=== PATIENT | male | born 1955 | race Caucasian/White ===

== ENCOUNTER 2023-10-17 13:00 | Inpatient (IN) | payer MEDICARE, MEDICAID ==
[2023-10-18 12:41] VITALS: BMI 34.0
[2023-10-19] MEDS ORDERED: Bupivacaine PF 0.5% 30 ML VIAL ONE (09:15)
[2023-10-19] MEDS ORDERED: EPINEPHrine 1 MG/ML VIAL ONE (09:15)
[2023-10-19] MEDS ORDERED: Heparin 5,000 UNITS/ML VIAL ONE (09:15)
[2023-10-19] MEDS ORDERED: Lidocaine 1% MPF 2 ML VIAL ONE (09:46)
[2023-10-19] MEDS ORDERED: CEFAZOLIN 2 GM VIAL ONE (09:57)
[2023-10-19] MEDS ORDERED: Sodium Chloride 0.9% 100 ML ONE (09:57)
[2023-10-19 10:07] LABS: #Basophils Less than 0.03 10x3/uL (0.0-0.2); %Basophils 0.2 % (0.0-1.0); %Eosinophils 2.9 % (0.0-10.0); %Lymphocytes 34.6 % (21.0-51.0); %Monocytes 10.7 % (0.0-10.0); Hematocrit 34.2 % (42.0-52.0); Hemoglobin 11.9 g/dL (14.0-18.0); Mean Corpuscular HGB CONC 34.8 g/dL (32.0-36.0); Mean Corpuscular Hemoglobin 30.3 pg (27.0-31.0); Mean Platelet Volume 9.7 fL (7.4-10.4); Platelet Count 246 10x3/uL (130-400); RBC Distribution Width 14.2 % (11.5-14.5); Red Blood Cell (RBC) Count 3.93 mill/uL (4.70-6.10)
[2023-10-19] MEDS ORDERED: Glycopyrrolate 0.2 MG/ML 5 ML SYRINGE ONE (10:12)
[2023-10-19] MEDS ORDERED: ePHEDrine Sulfate 50 MG/10 ML VIAL ONE (10:12)
[2023-10-19] MEDS ORDERED: PHENYLEPHRINE-NS 100 MCG/ML 10 ML SYRINGE ONE (10:12)
[2023-10-19] MEDS ORDERED: PROPOFOL 200 MG/20 ML VIAL ONE (10:12)
[2023-10-19] MEDS ORDERED: Rocuronium Bromide 10 MG/ML (10ML VIAL) ONE (10:12)
[2023-10-19 11:06] LABS: Anion Gap 16 mmol/L (10-20); BUN (Urea Nitrogen) 23 mg/dL (8.4-25.7); Calc. Creatinine Clearance 61 mL/min (70-130); Calcium 9.4 mg/dL (7.8-10.44); Carbon Dioxide 27 mmol/L (23-31); Chloride 104 mmol/L (98-107); Estimated GFR 45; Glucose 175 mg/dL (80-115); Potassium 3.5 mmol/L (3.5-5.1); Sodium 143 mmol/L (136-145)
[2023-10-19] MEDS ORDERED: Acetaminophen 325 MG TAB PO PRN (11:34)
[2023-10-19] MEDS ORDERED: Ipratropium/Albuterol 3 ML NEB NEB PRN (11:34)
[2023-10-19] MEDS ORDERED: Albuterol 200 PUFF (6.7GM INHALER) INH PRN (11:34)
[2023-10-19] MEDS ORDERED: Nitroglycerin 50 MG/250 ML BOT 250 ML IVPB PRN (11:34)
[2023-10-19] MEDS ORDERED: NOREPINEPHRINE 8 MG/250 ML-D5W 250 ML IVPB PRN (11:34)
[2023-10-19] MEDS ORDERED: NOREPINEPHRINE 8 MG/250 ML-D5W 250 ML IVPB SCH (12:30)
[2023-10-19] MEDS: Aspirin 81 mg Enteric Coated Tablet PO SCH (14:38)
[2023-10-19] MEDS: Sodium Chloride 0.9% 1,000 ML IV SCH (14:38)
[2023-10-19] MEDS: Ipratropium/Albuterol 3 ML NEB NEB SCH (14:53)
[2023-10-19] MEDS: metFORMIN 500 MG TAB PO SCH (16:25)
[2023-10-19] MEDS: Insulin Regular, Human 100 UNIT/ML 10 ML VIAL SC PRN (16:25)
[2023-10-19] MEDS: fentaNYL 50 mcg/mL 1 mL Vial SLOW IVP PRN (16:29)
[2023-10-19] MEDS: Ondansetron PF 4 MG/2 ML Vial IVP PRN (16:30)
[2023-10-19] MEDS: CEFAZOLIN 2 GM in Sodium Chloride 0.9% 100 ML IVPB SCH (16:59)
[2023-10-19] MEDS: hydrALAZINE 20 MG/ML VIAL SLOW IVP PRN (20:00)
[2023-10-19] MEDS: Fenofibrate Nanocrystallized 145 MG TAB PO SCH (20:35)
[2023-10-19] MEDS: Atorvastatin Calcium 40 MG TAB PO SCH (20:35)
[2023-10-19] MEDS: Gabapentin 400 MG CAP PO SCH (20:35)
[2023-10-19] MEDS: Insulin Glargine 30 UNITS/0.3 ML VIAL SC SCH (20:36)
[2023-10-19] MEDS: Tamsulosin HCl 0.4 MG CAP PO SCH (20:36)
[2023-10-20] MEDS: traMADol HCl 50 MG TAB PO PRN (00:55)
[2023-10-20] MEDS: Clopidogrel Bisulfate 75 MG TAB PO SCH (08:03)
[2023-10-20] MEDS: Pantoprazole DR 40 MG TAB PO SCH (08:03)
[2023-10-20] MEDS ORDERED: Nitroglycerin 0.4 MG TAB (25 Tab Bottle) SL PRN (08:26)
[2023-10-20] MEDS ORDERED: Ipratropium Bromide 2.5 ml Neb NEB PRN (08:26)
[2023-10-20] MEDS: busPIRone HCl 5 MG TAB PO SCH (09:21)
[2023-10-20] MEDS: hydrOXYzine 25 MG TAB PO SCH (09:21)
[2023-10-20] MEDS: tiZANidine HCl 4 MG TAB PO SCH (09:21)
[2023-10-20 09:22] VITALS: BP 130/82
[2023-10-20] MEDS: Bumetanide 1 MG TAB PO SCH (09:22)
[2023-10-20] MEDS: Carvedilol 6.25 MG TAB PO SCH (09:22)
[2023-10-20 09:44] VITALS: TEMP 98.4
[2023-10-20] MEDS ORDERED: Aspirin 81 mg Enteric Coated Tablet PO SCH (21:00)
[2023-10-20] MEDS ORDERED: Montelukast Sodium 10 mg Tablet PO SCH (21:00)
== END 2023-10-20 10:40 | disposition home or self-care (01) | DRG 36 ==
LOC: SURG A 10-19 07:03 → CCU 10-19 14:07
PROVIDERS: ADMIT Thoracic Surgery (Cardiothoracic Vascular Surgery); ATTEND Thoracic Surgery (Cardiothoracic Vascular Surgery)
PROC: 037L3DZ Dilation of Left Internal Carotid Artery with Intraluminal Device, Percutaneous Approach (ICD-10-PCS; principal; 2023-10-19)
DX: I65.22 Occlusion and stenosis of left carotid artery (principal); F17.220 Nicotine dependence, chewing tobacco, uncomplicated; J44.9 Chronic obstructive pulmonary disease, unspecified; I48.91 Unspecified atrial fibrillation; N40.0 Benign prostatic hyperplasia without lower urinary tract symptoms; M19.90 Unspecified osteoarthritis, unspecified site; E11.9 Type 2 diabetes mellitus without complications; K21.9 Gastro-esophageal reflux disease without esophagitis; E78.00 Pure hypercholesterolemia, unspecified; I11.0 Hypertensive heart disease with heart failure; I50.9 Heart failure, unspecified; Z79.899 Other long term (current) drug therapy; Z79.85 Long-term (current) use of injectable non-insulin antidiabetic drugs; Z79.84 Long term (current) use of oral hypoglycemic drugs; Z79.82 Long term (current) use of aspirin; Z79.02 Long term (current) use of antithrombotics/antiplatelets; Z86.73 Personal history of transient ischemic attack (TIA), and cerebral infarction without residual deficits; Z95.5 Presence of coronary angioplasty implant and graft; Z88.8 Allergy status to other drugs, medicaments and biological substances
CPT/HCPCS: 36416; 80048; 85025; 94640; C1725; C1769; C1876; C1884; J0171; J0360; J0665; J1642; J1644; J1815; J2405; J2704; J3010; J3490; J7620

== ENCOUNTER 2024-07-15 23:24 | Inpatient (IN) | payer MEDICARE, MEDICAID ==
[2024-07-16 00:45] LABS: Hematocrit 40.9 % (42.0-52.0); Hemoglobin 13.3 g/dL (14.0-18.0); Mean Corpuscular HGB CONC 32.5 g/dL (32.0-36.0); Mean Corpuscular Hemoglobin 30.8 pg (27.0-31.0); Mean Corpuscular Volume 94.7 fL (78.0-98.0); Mean Platelet Volume 9.1 fL (7.4-10.4); Platelet Count 241 10x3/uL (130-400); RBC Distribution Width 13.8 % (11.5-14.5); Red Blood Cell (RBC) Count 4.32 mill/uL (4.70-6.10)
[2024-07-16 01:00] LABS: Troponin I 0.013 ng/mL (< 0.028)
[2024-07-16 01:01] LABS: ALT (SGPT) 27 U/L (Less than 45); AST (SGOT) 47 U/L (11-34); Albumin 3.2 g/dL (3.1-4.5); Alkaline Phosphatase 85 U/L (40-110); Anion Gap 27 mmol/L (10-20); BUN (Urea Nitrogen) 15 mg/dL (8.4-25.7); Bilirubin, Total 0.6 mg/dL (0.3-1.2); Calc. Creatinine Clearance 0 mL/min (70-130); Carbon Dioxide Less than 8 mmol/L (23-31); Chloride 106 mmol/L (98-107); Estimated GFR 48; Globulin 3.6 g/dL (2.4-3.5); Glucose 299 mg/dL (83-110); Lipase 31 U/L (8-78); Magnesium 1.8 mg/dL (1.6-2.6); Potassium 3.8 mmol/L (3.5-5.1); Protein, Total 6.8 g/dL (5.8-8.1); Sodium 135 mmol/L (136-145)
[2024-07-16 01:07] LABS: Band 1 % (5-11); Burr Cells SLIGHT = 2-5 cells HPF (0-1); Eosinophils 1 % (0-10); Lymphocytes 9 % (21-51); Metamyelocyte 1 % (0-0); Monocytes 9 % (0-10); Myelocyte 3 % (0-0); Neutrophil 76 % (42-75); Ovalocytes SLIGHT = 2-5 cells HPF (0-1); Platelet Adequacy Comment Platelets Normal; Polychromasia SLIGHT = 2-3 cells HPF (0-2); Vacuoles SLIGHT
[2024-07-16 01:08] LABS: Analyzer IN Cardio ER; Calcium, Ionized (arterial) 1.37 mmol/L (1.12-1.30); Hematocrit-ABG 39 % (42.0-52.0); Hemoglobin (Hb) 13.2 g/dL (14.0-18.0); O2 Tension (PaO2), arterial 128.5 mmHg (> 70.0); Potassium - ABG Lab 3.93 mmol/L (3.70-5.30)
[2024-07-16 01:22] LABS: Base Excess -20.3 mEq/L (-2.0 to +3.0); Calcium, Ionized (venous) 1.21 mmol/L (1.16-1.32); Hematocrit-VBG 41 % (42.0-52.0); Potassium (VBG) 3.93 mmol/L (3.70-5.30); Sodium 139 mmol/L (133-146)
[2024-07-16 01:23] LABS: pH (venous) 7.136 (7.32-7.43)
[2024-07-16 01:47] LABS: Bacteria/HPF None Seen HPF (None Seen); Bilirubin Negative (Negative); Blood, Urine Negative (Negative); CAUTI Indications for Culture Dysuria,urgency,freq; Clarity Clear (Clear); Glucose, Urine (Dipstick) Greater than 1000 mg/dL (Negative); Ketone, Urine Greater than 150 mg/dL (Negative); Leukocyte Negative Leu/uL (Negative); Nitrite Negative (Negative); Protein, Urine (Dipstick) 20 mg/dL (Neg-Trace); RBC/HPF None Seen HPF (0-3); Specific Gravity, Urine 1.023 (1.002-1.036); Squamous Epithelial None Seen HPF (0-3); Urine Culture Reflex No No; Urobilinogen Normal mg/dL (Less than 2); WBC/HPF None Seen HPF (0-3)
[2024-07-16] MEDS ORDERED: INSULIN REGULAR IN 0.9 % NACL 100 ML ONE (01:52)
[2024-07-16 03:17] LABS: Free T4 (Free Thyroxine) 0.96 ng/dL (0.70-1.48); Thyroid Stimulating Hormone 0.8388 uIU/mL (0.35-4.94)
[2024-07-16] MEDS ORDERED: Albuterol 200 PUFF (6.7GM INHALER) INH PRN (03:37)
[2024-07-16] MEDS ORDERED: Glucagon 1 MG/ML KIT IM PRN ×2 (03:39→14:22)
[2024-07-16] MEDS ORDERED: Dextrose 5% in Water 1,000 ML IV PRN (03:39)
[2024-07-16] MEDS ORDERED: Dextrose 50% Abboject 50 ML SYRINGE SLOW IVP PRN (03:39)
[2024-07-16] MEDS ORDERED: Ondansetron PF 4 MG/2 ML Vial IVP PRN (03:42)
[2024-07-16] MEDS ORDERED: Ondansetron ODT 4 MG TAB PO PRN (03:42)
[2024-07-16] MEDS ORDERED: Acetaminophen 650 MG Suppository PR PRN (03:42)
[2024-07-16] MEDS ORDERED: Pantoprazole 40 MG VIAL ONE (04:17)
[2024-07-16] MEDS ORDERED: Ondansetron PF 4 MG/2 ML Vial ONE (04:17)
[2024-07-16 04:34] LABS: Hemoglobin A1c 10.2 % (4.0-6.0)
[2024-07-16 04:42] LABS: INR-International Normal Ratio 1.1; Prothrombin Time 14.4 sec (12.0-14.7)
[2024-07-16 04:43] LABS: PTT 27.9 sec (22.9-36.1)
[2024-07-16 05:06] LABS: #Basophils 0.04 10x3/uL (0.0-0.2); %Basophils 0.4 % (0.0-1.0); %Eosinophils 0.9 % (0.0-10.0); %Lymphocytes 13.7 % (21.0-51.0); %Monocytes 9.8 % (0.0-10.0); %Neutrophils 69.7 % (42.0-75.0); Hematocrit 40.4 % (42.0-52.0); Hemoglobin 13.6 g/dL (14.0-18.0); Mean Corpuscular HGB CONC 33.7 g/dL (32.0-36.0); Mean Corpuscular Hemoglobin 31.3 pg (27.0-31.0); Mean Corpuscular Volume 93.1 fL (78.0-98.0); Mean Platelet Volume 9.4 fL (7.4-10.4); Platelet Count 231 10x3/uL (130-400); RBC Distribution Width 13.9 % (11.5-14.5); Red Blood Cell (RBC) Count 4.34 mill/uL (4.70-6.10)
[2024-07-16] MEDS: Carvedilol 6.25 MG TAB PO SCH (08:40)
[2024-07-16] MEDS: Famotidine 20 MG TAB PO SCH (08:40)
[2024-07-16] MEDS: metFORMIN 500 MG TAB PO SCH (08:40)
[2024-07-16] MEDS: Famotidine/PF 20 mg/2ml Vial SLOW IVP SCH (09:44)
[2024-07-16] MEDS: Bumetanide 1 MG TAB PO SCH (09:44)
[2024-07-16] MEDS: INSULIN REGULAR IN 0.9 % NACL 100 ML IVPB SCH (10:49)
[2024-07-16 10:59] LABS: #Basophils Less than 0.03 10x3/uL (0.0-0.2); #Eosinophils Less than 0.03 10x3/uL (0.0-0.7); %Basophils 0.2 % (0.0-1.0); %Eosinophils 0.1 % (0.0-10.0); %Lymphocytes 14.9 % (21.0-51.0); %Monocytes 13.8 % (0.0-10.0); %Neutrophils 68.3 % (42.0-75.0); Hematocrit 36.7 % (42.0-52.0); Hemoglobin 12.5 g/dL (14.0-18.0); Mean Corpuscular HGB CONC 34.1 g/dL (32.0-36.0); Mean Corpuscular Hemoglobin 30.9 pg (27.0-31.0); Mean Corpuscular Volume 90.8 fL (78.0-98.0); Platelet Count 205 10x3/uL (130-400); RBC Distribution Width 13.7 % (11.5-14.5); Red Blood Cell (RBC) Count 4.04 mill/uL (4.70-6.10)
[2024-07-16 11:18] LABS: ALT (SGPT) 24 U/L (Less than 45); AST (SGOT) 41 U/L (11-34); Albumin 2.9 g/dL (3.1-4.5); Alkaline Phosphatase 74 U/L (40-110); Anion Gap 14 mmol/L (10-20); BUN (Urea Nitrogen) 11 mg/dL (8.4-25.7); Bilirubin, Total 0.5 mg/dL (0.3-1.2); Calc. Creatinine Clearance 59 mL/min (70-130); Calcium 8.8 mg/dL (7.8-10.44); Carbon Dioxide 15 mmol/L (23-31); Chloride 108 mmol/L (98-107); Estimated GFR 57; Globulin 3.4 g/dL (2.4-3.5); Glucose 177 mg/dL (83-110); Lipase 21 U/L (8-78); Potassium 3.4 mmol/L (3.5-5.1); Protein, Total 6.3 g/dL (5.8-8.1); Sodium 134 mmol/L (136-145)
[2024-07-16] MEDS: Potassium Chloride 40 MEQ in Dextrose 5%-Lactated Ringers 1,000 ML IV SCH (11:25)
[2024-07-16] MEDS ORDERED: Electrolyte Replacement Protocol 1 EACH FS SCH (11:30)
[2024-07-16] MEDS ORDERED: Electrolyte Replacement Protocol FS PRN (12:30)
[2024-07-16] MEDS: Insulin Glargine 30 UNITS/0.3 ML VIAL SC SCH ×2 (12:51→22:01)
[2024-07-16] MEDS: Magnesium 2 GM/50 ML(in water) 2 GM in Premix 1 BAG IVPB SCH (13:59)
[2024-07-16] MEDS: Potassium Chloride 20 MEQ in Premix 1 BAG IVPB SCH (14:48)
[2024-07-16] MEDS: Acetaminophen 325 MG TAB PO PRN (17:22)
[2024-07-16] MEDS: FLU (Fluad Triv) TS24-25 (65UP)/MF59C/PF 45 MCG/0.5 ML Syringe IM ONE (19:06)
[2024-07-16 21:34] LABS: Potassium 3.6 mmol/L (3.5-5.1)
[2024-07-16] MEDS: Montelukast Sodium 10 mg Tablet PO SCH (21:59)
[2024-07-16] MEDS: Tamsulosin HCl 0.4 MG CAP PO SCH (21:59)
[2024-07-16] MEDS: Atorvastatin Calcium 40 MG TAB PO SCH (21:59)
[2024-07-16] MEDS: Pantoprazole 40 MG DR.TAB PO SCH (22:00)
[2024-07-16] MEDS: Fenofibrate Nanocrystallized 145 MG TAB PO SCH (22:00)
[2024-07-16] MEDS: Acetaminophen/Codeine 30-300mg Tablet PO PRN (22:39)
[2024-07-17 06:46] LABS: #Basophils Less than 0.03 10x3/uL (0.0-0.2); #Eosinophils Less than 0.03 10x3/uL (0.0-0.7); %Basophils 0.3 % (0.0-1.0); %Eosinophils 0.1 % (0.0-10.0); %Lymphocytes 19.3 % (21.0-51.0); %Monocytes 11.9 % (0.0-10.0); %Neutrophils 67.2 % (42.0-75.0); Hematocrit 34.4 % (42.0-52.0); Hemoglobin 12.1 g/dL (14.0-18.0); Mean Corpuscular HGB CONC 35.2 g/dL (32.0-36.0); Mean Corpuscular Hemoglobin 31.3 pg (27.0-31.0); Mean Corpuscular Volume 89.1 fL (78.0-98.0); Platelet Count 168 10x3/uL (130-400); RBC Distribution Width 13.8 % (11.5-14.5); Red Blood Cell (RBC) Count 3.86 mill/uL (4.70-6.10)
[2024-07-17 07:05] LABS: ALT (SGPT) 21 U/L (Less than 45); AST (SGOT) 37 U/L (11-34); Albumin 2.6 g/dL (3.1-4.5); Alkaline Phosphatase 75 U/L (40-110); Anion Gap 13 mmol/L (10-20); BUN (Urea Nitrogen) 11 mg/dL (8.4-25.7); Bilirubin, Total 0.7 mg/dL (0.3-1.2); Calc. Creatinine Clearance 59 mL/min (70-130); Calcium 8.7 mg/dL (7.8-10.44); Carbon Dioxide 20 mmol/L (23-31); Chloride 106 mmol/L (98-107); Estimated GFR 58; Globulin 3.2 g/dL (2.4-3.5); Glucose 218 mg/dL (83-110); Potassium 3.4 mmol/L (3.5-5.1); Protein, Total 5.8 g/dL (5.8-8.1); Sodium 136 mmol/L (136-145)
[2024-07-17] MEDS ORDERED: ESOMEPRAZOLE MAGNESIUM 40 MG PO SCH (09:00)
[2024-07-17] MEDS: Magnesium 2 GM/50 ML(in water) 2 GM in Premix 1 BAG IVPB SCH (09:14)
[2024-07-17] MEDS: Potassium Chloride 20 MEQ TAB PO SCH (09:14)
[2024-07-17] MEDS: Aspirin 81 mg Enteric Coated Tablet PO SCH (09:15)
[2024-07-17] MEDS: dilTIAZem ER 60 MG CAP PO SCH (09:16)
[2024-07-17] MEDS: Clopidogrel Bisulfate 75 MG TAB PO SCH (09:16)
[2024-07-17] MEDS: Insulin Glargine 30 UNITS/0.3 ML VIAL SC SCH ×2 (09:28→19:47)
[2024-07-17] MEDS: Potassium Chloride 20 MEQ TAB PO ONE (13:16)
[2024-07-17] MEDS: Insulin Lispro 100 UNIT/ML 10 ML VIAL SC PRN (13:19)
[2024-07-18] MEDS: Calcium Carbonate 500 MG ChewTAB PO PRN (02:54)
[2024-07-18 04:45] LABS: #Basophils Less than 0.03 10x3/uL (0.0-0.2); %Basophils 0.5 % (0.0-1.0); %Eosinophils 2.1 % (0.0-10.0); %Lymphocytes 39.3 % (21.0-51.0); %Monocytes 12.4 % (0.0-10.0); %Neutrophils 44.3 % (42.0-75.0); Hemoglobin 11.5 g/dL (14.0-18.0); Mean Corpuscular HGB CONC 34.8 g/dL (32.0-36.0); Mean Corpuscular Hemoglobin 30.7 pg (27.0-31.0); Mean Corpuscular Volume 88.2 fL (78.0-98.0); Mean Platelet Volume 9.1 fL (7.4-10.4); Platelet Count 153 10x3/uL (130-400); RBC Distribution Width 13.8 % (11.5-14.5); Red Blood Cell (RBC) Count 3.74 mill/uL (4.70-6.10)
[2024-07-18 05:07] LABS: Anion Gap 9 mmol/L (10-20); BUN (Urea Nitrogen) 12 mg/dL (8.4-25.7); Calc. Creatinine Clearance 68 mL/min (70-130); Calcium 8.7 mg/dL (7.8-10.44); Carbon Dioxide 24 mmol/L (23-31); Chloride 106 mmol/L (98-107); Estimated GFR 68; Glucose 116 mg/dL (83-110); Potassium 3.4 mmol/L (3.5-5.1); Sodium 136 mmol/L (136-145)
[2024-07-18] MEDS: Magnesium 2 GM/50 ML(in water) 2 GM in Premix 1 BAG IVPB SCH (09:00)
[2024-07-18] MEDS: Potassium Chloride 20 MEQ TAB PO SCH (09:00)
[2024-07-18] MEDS: Gabapentin 300 MG CAP PO SCH (12:39)
[2024-07-18] MEDS: Potassium Chloride 20 MEQ TAB PO ONE (14:58)
[2024-07-18] MEDS: Morphine 2 MG/ML VIAL SLOW IVP SCH (16:41)
[2024-07-18] MEDS: Gabapentin 100 MG CAP PO SCH (19:52)
[2024-07-18] MEDS: Insulin Glargine 30 UNITS/0.3 ML VIAL SC SCH (19:54)
[2024-07-18] MEDS: Melatonin 3 MG TAB PO SCH (19:56)
[2024-07-19] MEDS: Insulin Glargine 30 UNITS/0.3 ML VIAL SC SCH (08:37)
[2024-07-19] MEDS: Morphine 2 MG/ML VIAL SLOW IVP PRN (13:13)
[2024-07-19] MEDS: Gabapentin 300 MG CAP PO SCH (13:54)
[2024-07-20 04:44] LABS: #Basophils Less than 0.03 10x3/uL (0.0-0.2); %Basophils 0.2 % (0.0-1.0); %Eosinophils 4.1 % (0.0-10.0); %Monocytes 12.5 % (0.0-10.0); Hematocrit 32.5 % (42.0-52.0); Hemoglobin 11.6 g/dL (14.0-18.0); Mean Corpuscular HGB CONC 35.7 g/dL (32.0-36.0); Mean Corpuscular Hemoglobin 31.2 pg (27.0-31.0); Mean Corpuscular Volume 87.4 fL (78.0-98.0); Mean Platelet Volume 9.6 fL (7.4-10.4); Platelet Count 172 10x3/uL (130-400); RBC Distribution Width 13.7 % (11.5-14.5); Red Blood Cell (RBC) Count 3.72 mill/uL (4.70-6.10)
[2024-07-20 05:17] LABS: Anion Gap 10 mmol/L (10-20); BUN (Urea Nitrogen) 16 mg/dL (8.4-25.7); Calc. Creatinine Clearance 71 mL/min (70-130); Calcium 9.1 mg/dL (7.8-10.44); Carbon Dioxide 24 mmol/L (23-31); Chloride 102 mmol/L (98-107); Estimated GFR 73; Glucose 92 mg/dL (83-110); Magnesium 1.8 mg/dL (1.6-2.6); Sodium 132 mmol/L (136-145)
[2024-07-20] MEDS: Magnesium 2 GM/50 ML(in water) 2 GM in Premix 1 BAG IVPB SCH (09:08)
[2024-07-20] MEDS: Sodium Chloride 0.9% 500 ML IV SCH (10:38)
[2024-07-20] MEDS: Gabapentin 100 MG CAP PO SCH (18:33)
[2024-07-20] MEDS: Gabapentin 400 MG CAP PO SCH (21:32)
[2024-07-21 05:38] VITALS: BMI 31.3
[2024-07-21 08:51] LABS: Anion Gap 10 mmol/L (10-20); BUN (Urea Nitrogen) 16 mg/dL (8.4-25.7); Calc. Creatinine Clearance 71 mL/min (70-130); Calcium 8.8 mg/dL (7.8-10.44); Carbon Dioxide 27 mmol/L (23-31); Chloride 100 mmol/L (98-107); Estimated GFR 63; Glucose 175 mg/dL (83-110); Sodium 133 mmol/L (136-145)
[2024-07-21 10:45] LABS: Actual Bicarbonate (HCO3a) 6.9 mEq/L (22-28); CO2 Tension 18.1 mmHg (35.0-45.0); pH, Arterial 7.197 (7.35-7.45)
[2024-07-21 10:47] LABS: Actual Bicarbonate (HCO3v) 6.9 mEq/L (22-28)
[2024-07-21] MEDS: Sodium Chloride 0.9% 1,000 ML IV SCH (14:58)
[2024-07-21] MEDS: Insulin Glargine 30 UNITS/0.3 ML VIAL SC SCH (14:58)
[2024-07-22 05:49] LABS: Anion Gap 10 mmol/L (10-20); BUN (Urea Nitrogen) 18 mg/dL (8.4-25.7); Calc. Creatinine Clearance 73 mL/min (70-130); Calcium 8.7 mg/dL (7.8-10.44); Carbon Dioxide 26 mmol/L (23-31); Chloride 106 mmol/L (98-107); Estimated GFR 65; Glucose 57 mg/dL (83-110); Magnesium 1.7 mg/dL (1.6-2.6); Potassium 4.1 mmol/L (3.5-5.1); Sodium 138 mmol/L (136-145)
[2024-07-22] MEDS: Insulin Glargine 30 UNITS/0.3 ML VIAL SC SCH (08:47)
[2024-07-22] MEDS: Magnesium 2 GM/50 ML(in water) 2 GM in Premix 1 BAG IVPB SCH ×2 (08:47→09:12)
[2024-07-22] MEDS ORDERED: Ipratropium/Albuterol 3 ML NEB NEB PRN (12:44)
[2024-07-22] MEDS: busPIRone HCl 10 MG TAB PO SCH (19:41)
[2024-07-23] MEDS: Gabapentin 300 MG CAP PO SCH (14:40)
[2024-07-23] MEDS: HYDROcodone/Acetaminophen 5/325 mg Tablet PO PRN (14:41)
[2024-07-23 16:55] VITALS: BMI 31.0
[2024-07-23] MEDS: Enoxaparin 40 MG (0.4 mL) SYRINGE SC SCH (21:12)
[2024-07-23] MEDS: Nystatin/Triamcinolone Ointment 15 GM TUBE TOP SCH (21:13)
[2024-07-24] MEDS: HYDROcodone/Acetaminophen 10/325 mg Tablet PO PRN (10:40)
[2024-07-24] MEDS: Insulin Glargine 30 UNITS/0.3 ML VIAL SC SCH (21:31)
[2024-07-25 00:38] VITALS: TEMP 97.8
[2024-07-25 05:24] LABS: Anion Gap 12 mmol/L (10-20); BUN (Urea Nitrogen) 31 mg/dL (8.4-25.7); Calc. Creatinine Clearance 63 mL/min (70-130); Calcium 8.6 mg/dL (7.8-10.44); Carbon Dioxide 26 mmol/L (23-31); Chloride 102 mmol/L (98-107); Estimated GFR 53; Glucose 250 mg/dL (83-110); Potassium 4.6 mmol/L (3.5-5.1); Sodium 135 mmol/L (136-145)
[2024-07-25 12:25] VITALS: BP 122/79
== END 2024-07-25 13:12 | disposition home or self-care (01) | DRG 308 ==
LOC: ERS 23:24 → CCU 07-16 03:57 → 2NO 07-16 20:41 → T4-A 07-22 19:02
PROVIDERS: ADMIT Student in an Organized Health Care Education/Training Program; ATTEND Internal Medicine
PROC: 4A033R1 Measurement of Arterial Saturation, Peripheral, Percutaneous Approach (ICD-10-PCS; principal; 2024-07-16)
DX: I48.91 Unspecified atrial fibrillation (principal); E11.10 Type 2 diabetes mellitus with ketoacidosis without coma; E87.1 Hypo-osmolality and hyponatremia; I48.20 Chronic atrial fibrillation, unspecified; J44.9 Chronic obstructive pulmonary disease, unspecified; Z88.8 Allergy status to other drugs, medicaments and biological substances; G47.33 Obstructive sleep apnea (adult) (pediatric); K21.9 Gastro-esophageal reflux disease without esophagitis; E78.5 Hyperlipidemia, unspecified; Z98.890 Other specified postprocedural states; Z79.899 Other long term (current) drug therapy; Z79.82 Long term (current) use of aspirin; N18.30 Chronic kidney disease, stage 3 unspecified; E11.65 Type 2 diabetes mellitus with hyperglycemia; I12.9 Hypertensive chronic kidney disease with stage 1 through stage 4 chronic kidney disease, or unspecified chronic kidney disease; Z79.4 Long term (current) use of insulin
CPT/HCPCS: 36415; 36416; 80048; 80053; 81001; 82010; 82805; 83036; 83605; 83690; 83735; 83880; 84439; 84443; 84484; 85025; 85610; 85730; 93005; 96374; 96375; J1650; J1815; J2272; J2405; J2470; J3475; J3480; J7030